=== PATIENT | female | born 1975 | race Caucasian/White ===

== ENCOUNTER → 2017-01-18 | Outpatient (CLI) | payer OTHER ==
[~2017-01-18] VITALS: Ht 167.6 cm; Wt 102.8 kg
[~2017-01-18] MED LIST: ANTIVERT25 MG PO; CBD OIL; CLARITIN10 MG PO; CYMBALTA30 MG PO; FLUOXETINE HCL40 MG PO; NUVIGIL150 MG PO; VITAMIN D 5050000 I1 PO
--- NOTE | ~2017-01-18 | HPC ---
[facility] [place] [address] PAIN MANAGEMENT CONSULTATION Name: CHARLES ANDERSON [facility] [id number] Admission: 01/18/17 Attend Phys: Rishi Rico DO Discharge: Date of : 75 Report #: [id number] THIS REPORT FOR: //name// CC: Rishi Torres DATE OF SERVICE: 01/18/2017 REFERRING PHYSICIAN: Wei Whaley M.D. CHIEF COMPLAINT: Low back pain, right lower extremity pain and paresthesias. HISTORY OF PRESENT ILLNESS: As you know, the patient is a 41-year-old morbidly obese female referred to our service for lumbar radicular symptoms. She has undergone epidural injections under fluoroscopic guidance. The most recent June 2016 with a greater than 50% improvement in overall pain. She returns today in followup visit with a slow and progressive return of symptoms, now placing her pain score at 7/10. States her pain is aching, dull and burning, exacerbated with activities, improves with epidural injections, rest and relaxation. She has returned today in followup visit requesting this epidural injection in hopes of building on success of previous intervention. ALLERGIES: No known drug allergies. CURRENT MEDICATIONS: None. SOCIAL HISTORY: The patient denies tobacco, alcohol, IV or illicit drug use. She is unaccompanied today. IMAGING: No new imaging available. PHYSICAL EXAMINATION: VITAL SIGNS: Blood pressure 125/81, pulse is 104, respiratory rate 16, unlabored, the patient 99% on room air, height 5 feet 6 inches tall, weight 226.6 pounds, BMI calculated 36.6. GENERAL: Well developed, well nourished, well hydrated, morbidly obese 41-year-old female appearing her stated age, placing current pain score at 7/10. HEENT: Normocephalic, atraumatic. Pupils equal, round, reactive to light. Extraocular muscles are intact. Sclerae nonicteric, without injection. EXTREMITIES: Show no clubbing, no cyanosis, no edema. MUSCULOSKELETAL: Lower extremity strength symmetrical 5/5, intact to light touch from L1 through S2 dermatomes. Seated straight leg raising negative. Supine straight leg raising positive on the right. Fabere's test negative. Modified Gaenslen's positive for axial low back pain. Ankle clonus negative. Babinski is negative. [address] [address] PAIN MANAGEMENT CONSULTATION Name: CHARLES ANDERSON Room #: REG CLI [facility]#: [id number] Admission: 01/18/17 Attend Phys: Rishi Rico DO Discharge: Date of : 75 Report #: [id number] ASSESSMENT: 1. Symptomatic lumbar radiculopathy. 2. Displacement of lumbar intervertebral disk with radiculopathy. 3. Lumbosacral spondylosis with radiculopathy. 4. Chronic intractable pain. PLAN: 1. The patient has returned today in followup visit requesting to undergo epidural injection under fluoroscopic guidance. She has received 50% improvement in overall pain with previous injection in June 2016. She returns today requesting this epidural injection in hopes of improving pain further. The patient was advised a third green party payer restrictions require that authorization be obtained before we could undergo the next in the series of epidural injections. This authorization will take somewhere between 4-7 working days, we will begin the process immediately, contact the patient once this has been completed. 2. No medication changes were made at today's visit. The patient to continue current medical therapy as previously prescribed. 3. The patient to return to our clinic once we have achieved precertification to undergo the next in a series of epidural injections to build on success of the previous intervention. cc: Wei Whaley M.D. By: [id number] Rishi Rico DO /cristel
[2017-01-18 10:44] VITALS: BP 125/81
== END ==
LOC: PAIN 06:50
DX: M47.27 Other spondylosis with radiculopathy, lumbosacral region (principal); M51.16 Intervertebral disc disorders with radiculopathy, lumbar region; F10.21 Alcohol dependence, in remission; Z88.8 Allergy status to other drugs, medicaments and biological substances; Z88.3 Allergy status to other anti-infective agents

== ENCOUNTER → 2017-02-02 | Outpatient (CLI) | payer OTHER ==
[~2017-02-02] VITALS: Ht 167.6 cm; Wt 102.7 kg
--- NOTE | ~2017-02-02 | HPC ---
[facility] [place] [address] PAIN MANAGEMENT CONSULTATION Name: CHARLES ANDERSON Room #: REG [facility].#: [id number] Admission: 02/02/17 Attend Phys: Rishi Rico DO Discharge: Date of : 75 Report #: [id number] THIS REPORT FOR: //name// CC: Rishi Torres MD DATE OF SERVICE: 02/02/2017 REFERRING PHYSICIAN: Mario Torres MD. CHIEF COMPLAINT: Low back pain, right lower extremity pain and paresthesias. HISTORY OF PRESENT ILLNESS: As you know, the patient is a 42-year-old female, who returns today in followup visit having received precertification to undergo the next in the series of epidural injections under fluoroscopic guidance. She returns today with pain level of 6/10. States her pain is aching, dull, and burning in sensation, exacerbated with sitting, standing, lying down, improves with repositioning and epidural injections. She reports good efficacy with the previous epidural injection performed on 06/09/2016 with 50% improvement in symptoms overall. She returns today having received precertification to undergo the next in the series in hopes of building on success of previous intervention. ALLERGIES: No known drug allergies. CURRENT MEDICATIONS: None. SOCIAL HISTORY: The patient denies tobacco, alcohol, IV or illicit drug use. She is unaccompanied today. IMAGING: No new imaging available. PHYSICAL EXAMINATION: VITAL SIGNS: Blood pressure 131/96, pulse 91, respiratory rate 20, unlabored. The patient is 99% on room air. Height 5 feet 6 inches tall, weight 226.4 pounds, BMI calculated 36.6. GENERAL: Well-developed, well-nourished, and well-hydrated. A 42-year-old female, appears her stated age, placing current pain score at 6/10. HEENT: Normocephalic and atraumatic. Pupils are equal, round, and reactive to light. EXTREMITIES: Show no clubbing, no cyanosis, no edema. MUSCULOSKELETAL: Seated straight leg raising negative. Supine straight leg raising positive. Fabere's test negative. Modified Gaenslen's is positive for axial low back pain. Ankle clonus negative. Gait is slightly antalgic, favoring right lower extremity over left. [address] [address] PAIN MANAGEMENT CONSULTATION Name: CHARLES ANDERSON Room #: REG [facility] Archana#: [id number] Admission: 02/02/17 Attend Phys: Rishi Rico DO Discharge: Date of : 75 Report #: [id number] ASSESSMENT: 1. Symptomatic lumbar radiculopathy. 2. Displacement of lumbar intervertebral disk with radiculopathy. 3. Lumbosacral spondylosis with radiculopathy. 4. Chronic intractable pain. PLAN: 1. The patient returns today in followup visit having received precertification to undergo the next in the series of epidural injections under fluoroscopic guidance. She has done very well with previous injections upwards of 50% improvement in overall pain. She returns today requesting next in the series. She has received precertification to undergo the procedure today. I advised the risks and benefits of the procedure, states she understood and wished to proceed. 2. No medication changes were made at today's visit. The patient is to continue current medical therapy as previously prescribed. 3. The patient is to return to our clinic on an as needed basis for the next in the series of epidural injections. PROCEDURE NOTE: DESCRIPTION OF PROCEDURE: Lumbar epidural steroid injection under fluoroscopic guidance. This is the third procedure of the first series that the patient is undergoing. After obtaining written consent, the patient was taken back to the fluoroscopy suite, placed in a prone position with pillow under the abdomen to decrease lumbar lordosis. The skin overlying the lumbosacral area was then prepped and draped in aseptic fashion. The lumbar vertebral interspace was then identified by AP fluoroscopy. The skin and subcutaneous tissue overlying the target site of injection was anesthetized with 3 mL 1% lidocaine. A 20-guage 4-1/2 inch Tuohy needle was then advanced under fluoroscopic guidance towards the epidural space using a right paramedian approach. The epidural space was identified using loss of resistance to air technique. After negative aspiration for heme or cerebrospinal fluid, a total of 1 mL of Omnipaque was injected. A lumbar epidurogram was confirmed using both AP and lateral fluoroscopy. After negative aspiration for heme or cerebrospinal fluid, 5 mL of solution containing 2 mL 40 mg per mL 80 mg total triamcinolone and 3 mL of lidocaine 1% was injected in increments. Contrast spread was noted posterior epidural space. The needle was then retracted approximately half way and needle tract flushed with 1 mL of 1% lidocaine. Needle was then removed. There were no apparent sensory or motor deficits in the lower extremity following the procedure. A sterile bandage was placed over the injection site. [facility] [address] [place] [address] PAIN MANAGEMENT CONSULTATION Name: CHARLES ANDERSON Room #: REG CL [facility]#: [id number] Admission: 02/02/17 Attend Phys: Rishi Rico DO Discharge: Date of : 75 Report #: [id number] The heart rate, pulse, oximetry and blood pressure were continuously monitored after the procedure. There were no apparent complications. The patient tolerated the procedure well and was carefully escorted to the recovery room in stable condition. There were no apparent complications. After meeting discharge criteria, the patient was then discharged home. <ELECTRONICALLY SIGNED> By: Rishi Rico DO 02/03/17 [id number] Rishi Rico DO /nt
[2017-02-02 09:50] VITALS: BP 131/96
== END | disposition home or self-care (01) ==
LOC: PAIN 02-01 13:06
DX: M51.16 Intervertebral disc disorders with radiculopathy, lumbar region (principal); M47.27 Other spondylosis with radiculopathy, lumbosacral region; G89.29 Other chronic pain

== ENCOUNTER → 2017-02-23 | Outpatient (CLI) | payer OTHER ==
--- NOTE | ~2017-02-23 | S ---
[facility] [address] [place] [address] SURGICAL PATH RPT PROCEDURE Name: CHARLES DOA [facility] [id number] Admission: 02/23/17 Date of : 75 Discharge: Report #: [id number] Path Case #: [id number] PATHOLOGY REPORT COLLECTION DATE: 02/23/2017 RECEIVED DATE: 02/23/2017 SUBMITTING PHYS: Dr. Dashawn Womack OTHER PHYS: Dr. Wayne Duron SPECIMEN(S) RECEIVED: A.Left breast nodule 3:00, 3cm FN * * * * * * * * * * * * FINAL DIAGNOSIS: Breast, left breast nodule 3:00, 3 cm from nipple, ultrasound-guided needle core biopsy: - Fat necrosis and moderate chronic inflammation associated with dense stromal fibrosis (please see comment). - Background breast tissue showing non-proliferative fibrocystic changes. - Negative for hyperplasia, atypia, or malignancy. COMMENT: AE1/AE3 immunohistochemical stain is performed on block A2: non-reactive within the infiltrative cells consistent with the diagnosis. Co-review: Dr. Demetria Pollard (IUV:mgr; d/t: 02/25/2017) PATHOLOGIST: Candis Ying M.D. REPORT ELECTRONICALLY SIGNED BY: Candis Ying M.D. DATE/TIME: 02/25/2017 15:23 * * * * * * * * * * * * GROSS PATHOLOGY: Received in formalin labeled "Charles Dao, left 3:00 3 cm," are multiple needle cores of yellow-machuca fibrofatty tissue measuring 2.4 x 1.2 x 0.2 cm in aggregate dimensions. The tissue is submitted in its entirety in cassette A1 and A2. The cold ischemic time is 5 minutes. The total formalin fixation time is 31 hours and 20 minutes. (CAA; 02/24/2017) CLINICAL HISTORY: Nodule [facility] [address] [facility] [place] [address] SURGICAL PATH RPT PROCEDURE Name: CHARLES DAO Room #: REG [facility].#: [id number] Admission: 02/23/17 Date of : 75 Discharge: Report #: [id number] Path Case #: [id number] INITIAL CPT CODE(S): A; 51888, 91160 Professional services performed by [facility] [address], [place] [address] Technical services performed by [facility] at [address] [place] [address], [facility] [address] [address]. [facility] [place] [address] PHONE: [phone] DIRECTOR: Juan Kaplan M.D. * * * END OF REPORT * * *
== END | disposition home or self-care (01) ==
LOC: ULTRA 01:47
DX: N60.32 Fibrosclerosis of left breast (principal)

== ENCOUNTER → 2017-06-15 | Outpatient (CLI) | payer OTHER ==
[~2017-06-15] VITALS: Ht 167.6 cm; Wt 101.9 kg
[~2017-06-15] MED LIST changes: +REXULTI1 MG PO; +XYZAL5 MG PO
--- NOTE | ~2017-06-15 | HPC ---
[facility] [place] [address] PAIN MANAGEMENT CONSULTATION Name: MONICACHARLES MELCHORN Room #: REG [facility]#: [id number] Admission: 06/15/17 Attend Phys: Rishi Rico DO Discharge: Date of : 75 Report #: [id number] THIS REPORT FOR: //name// CC: Rishi Torres DATE OF SERVICE: 06/15/2017 DATE OF SERVICE: 06/15/2017 CHIEF COMPLAINT: Low back pain, right lower extremity pain and paresthesias. HISTORY OF PRESENT ILLNESS: As you know, the patient is a 42-year-old female, who returns today in followup visit requesting to undergo the next in a series of epidural injections under fluoroscopic guidance. The patient reports near 100% improvement in overall pain for the past 4 months. She states she has had a slow and progressive return of symptoms with pain now level at 3/10. She returns today requesting to undergo the next in a series of epidural injections in hopes of improving pain and continued analgesic benefit. ALLERGIES: No known drug allergies. CURRENT MEDICATIONS: Xyzal 5 mg once a day, Rexulti 1 mg per day. SOCIAL HISTORY: The patient denies tobacco, alcohol, IV or illicit drug use. She is unaccompanied today. IMAGING: No new imaging available. PHYSICAL EXAMINATION: VITAL SIGNS: Blood pressure 121/83, pulse is 90, respiratory rate 16, unlabored. The patient is 97% on room air, height 5 feet 6 inches tall, weight 224.6 pounds, BMI calculated 36.3. GENERAL: Well developed, well nourished, well hydrated, morbidly obese 42-year-old female appearing her stated age. She is placing current pain score at approximately 3/10. HEENT: Normocephalic, atraumatic. Pupils equal, round, reactive to light. EXTREMITIES: Show no clubbing, no cyanosis, no edema. MUSCULOSKELETAL: Lower extremity strength 5/5 in all muscle bulk and tone equal and symmetrical. Seated straight leg raising negative. Supine straight leg raising mildly positive on the right with distribution of the L5 dermatome. Bernardo test negative. Modified Gaenslen's positive for axial low back pain. ASSESSMENT: 1. Symptomatic lumbar radiculopathy. [address] [address] PAIN MANAGEMENT CONSULTATION Name: CHARLES ANDERSON Room #: REG [facility]#: [id number] Admission: 06/15/17 Attend Phys: Rishi Rico DO Discharge: Date of : 75 Report #: [id number] 2. Displacement of lumbar intervertebral disk with radiculopathy. 3. Lumbosacral spondylosis with radiculopathy. 4. Chronic intractable pain. PLAN: 1. The patient returns today in followup visit requesting to undergo the next in a series of epidural injections under fluoroscopic guidance. The patient has had a slow and progressive return of symptoms, now placing pain score 3/10. She received near 100% improvement in overall pain with the previous epidural injection. She is hopeful to see similar improvement once we have received precertification to undergo the next in a series of epidural injections. I did advise the patient. This will take somewhere between 4-7 working days, begin the process immediately, contact the patient once this is available. 2. No medication change were made at today's visit. The patient will continue current medical therapy as previously prescribed. 3. We will see the patient back in followup visit once we have received precertification to undergo a lumbar epidural injection under fluoroscopic guidance. By: [id number] Rishi Rico DO /nt
[2017-06-15 10:37] VITALS: BP 121/83
== END | disposition home or self-care (01) ==
LOC: PAIN 07:04
DX: M51.16 Intervertebral disc disorders with radiculopathy, lumbar region (principal); M47.27 Other spondylosis with radiculopathy, lumbosacral region; G89.29 Other chronic pain; Z98.890 Other specified postprocedural states; Z91.040 Latex allergy status; Z88.3 Allergy status to other anti-infective agents

== ENCOUNTER → 2019-10-30 | Outpatient (CLI) | payer OTHER ==
[~2019-10-30] VITALS: Ht 167.6 cm; Wt 102.0 kg
[~2019-10-30] MED LIST changes: +BRINTELLIX20 MG PO; +BUSPIRONE HCL10 MG PO; +NUVIGIL50 MG PO; +SINGULAIR 10 MG10 M1 PO
--- NOTE | ~2019-10-30 | HPC ---
[facility] [place] [address] PAIN MANAGEMENT CONSULTATION Name: CHARLES ANDERSON Room #: REG [facility].#: [id number] Admission: 10/30/19 Attend Phys: Rishi Rico DO Discharge: Date of : 75 Report #: [id number] THIS REPORT FOR: cc: Mario Torres MD, Neal A. MD Johnson, James E. DO ~ CC: Dr. Arguelles ____ Rishi Torres MD DATE OF SERVICE: 10/30/2019 REFERRING PHYSICIAN: Dr. Arguelles ____ PRIMARY CARE PHYSICIAN: Mario Torres MD CHIEF COMPLAINT: Low back pain, right lower extremity pain with paresthesias. HISTORY OF PRESENT ILLNESS: As you know, the patient is a pleasant 44-year-old female who has returned today in followup visit with recurrence of low back pain and right lower extremity pain with paresthesias. She is placing pain at around 6-9/10. She describes the pain as burning and constant, exacerbated with standing and improves with lying down and rest. She has undergone epidural injections in the past with good efficacy. The most recent epidural injection provided 100% improvement in overall pain lasting for months. She returns today in followup visit to begin the authorization process to undergo an epidural injection before her trip to [facility] scheduled for 11/26/2019. The patient denies new injury, trauma or any changes in medical history since our last visit. Pain she rates today at a level of 6-9/10 involving low back, radiating down the right leg. ALLERGIES: No known drug allergies. CURRENT MEDICATIONS: Xyzal 5 mg once a day, Trintellix 20 mg once a day, Nuvigil 50 mg 4 tablets per day, montelukast sodium 10 mg per day, Rexulti 2 mg once a day, CBD oil. SOCIAL HISTORY: The patient denies tobacco, alcohol, IV or illicit drug use. She is unaccompanied today. IMAGING: No new imaging available. PHYSICAL EXAMINATION: VITAL SIGNS: Blood pressure 139/81, pulse 81, respiratory rate 16 and unlabored, the patient is 96% on room air. Height 5 feet 6 inches tall, weight [facility] [address] [place] [address] PAIN MANAGEMENT CONSULTATION Name: CHARLES ANDERSON Room #: REG [facility]#: [id number] Admission: 10/30/19 Attend Phys: Rishi Rico DO Discharge: Date of : 75 Report #: [id number] 224.8 pounds, BMI calculated 36.3. GENERAL: Well-developed, well-nourished, well-hydrated exogenously obese 44-year-old female appearing stated age, pain is rated today 6-9/10. HEENT: Normocephalic and atraumatic. Pupils are equal, round, and reactive to light. Extraocular muscles are intact. Sclerae nonicteric without injection. EXTREMITIES: Show no clubbing, no cyanosis, no edema. MUSCULOSKELETAL: Lower extremity strength remains symmetrical again today 5. Muscle bulk and tone is symmetrical in comparing left lower extremity to right. Lumbar provocation testing is met with slight increase in overall pain, this is noted mainly with forward flexion and rotation. Modified Gaenslen's positive for axial low back pain. Seated straight leg raising negative. Supine straight leg raising remains positive on the right at about 70 degrees. ASSESSMENT: 1. Symptomatic lumbar radiculopathy. 2. Displacement of lumbar intervertebral disk with radiculopathy. 3. Lumbosacral spondylosis with radiculopathy. 4. Chronic intractable pain. PLAN: 1. The patient returns today in followup visit to begin the process of authorization to undergo a lumbar epidural injection under fluoroscopic guidance. The patient was advised that authorization processes are no longer requested by her insurance. We would recommend though that if she is planning to undergo an epidural injection to assist in pain during her trip that we placed the injection closer to the trip date, which is scheduled for 02/26/2020. The patient and I discussed the possibility of undergoing the epidural injection today and she will see improvement, but if she wishes to place the injection closer to the date, she will see a more significant effect with the steroid while she is on her trip. She is amenable to set the appointment date for the 19 of November. 2. The patient was scheduled for the 19 of November to undergo a lumbar epidural injection under fluoroscopic guidance. We did not make any changes in the patient's medication management today. She states she is doing well overall despite the elevated pain level of 6-9/10 today. The patient states she will continue her normal work and activities and plan to undergo the injection on the 19 of November. By: [id number] Rishi Rico DO /nt
[2019-10-30 08:49] VITALS: BP 139/81
--- NOTE | 2019-10-30 09:06 | NUR ---
Pain Clinic Assessment: 1. History of Osteoarthritis: BACK History of Rheumatoid Arthritis: 2. Height: 5 ft. 6 in. 167.6 cm. Weight: 224.8 lb. oz. 101.969 kg. Patient's BMI: 36.3 3. Vital Signs: BP: 139/81 Pulse: 81 Resp: 16 Temp: 02 Sat: 96 ECG Mon: 4. Pain Intensity: 6-9 5. Fall Risk: Dizziness: N Needs help standing or walking: N Fallen in the last 3 months: N Fall risk comments: 6. Patient on Blood Thinner: None 7. History of Hypertension: N 8. Opioid Therapy greater than 6 weeks: N Opiate Contract Signed: 9. Risk Assessment Tool Provided: 6-MODERATE 10. Functional Assessment Tool: 45/ 11. Recreational Drug Use: Never Drug Type: Tobacco Use: Never Smoker Tobacco Type: Amount or Packs/day: How Many Years: Alcohol Use: Yes Frequency: Quant:
== END ==
LOC: PAIN 07:35
DX: M51.16 Intervertebral disc disorders with radiculopathy, lumbar region (principal); M47.26 Other spondylosis with radiculopathy, lumbar region; M79.604 Pain in right leg; G89.29 Other chronic pain; Z79.899 Other long term (current) drug therapy

== ENCOUNTER → 2019-11-20 | Outpatient (CLI) | payer OTHER ==
[~2019-11-20] VITALS: Ht 167.6 cm; Wt 100.8 kg
[2019-11-20 11:16] VITALS: BP 133/97
--- NOTE | 2019-11-20 11:25 | NUR ---
Pain Clinic Assessment: 1. History of Osteoarthritis: BACK History of Rheumatoid Arthritis: 2. Height: 5 ft. 6 in. 167.6 cm. Weight: 222.2 lb. oz. 100.789 kg. Patient's BMI: 35.9 3. Vital Signs: BP: 133/97 Pulse: 85 Resp: 16 Temp: 02 Sat: 97 ECG Mon: 4. Pain Intensity: 8-9 WITH ACTIVITY 5. Fall Risk: Dizziness: N Needs help standing or walking: N Fallen in the last 3 months: N Fall risk comments: 6. Patient on Blood Thinner: None 7. History of Hypertension: N 8. Opioid Therapy greater than 6 weeks: N Opiate Contract Signed: 9. Risk Assessment Tool Provided: 6-MODERATE 10. Functional Assessment Tool: 11. Recreational Drug Use: Never Drug Type: Tobacco Use: Never Smoker Tobacco Type: Amount or Packs/day: How Many Years: Alcohol Use: Yes Frequency: Quant:
--- NOTE | 2019-11-20 15:47 | HPC ---
[facility] [place] [address] PAIN MANAGEMENT CONSULTATION Name: CHARLES ANDERSON Room #: [facility]#: [id number] Admission: 11/20/19 Attend Phys: Rishi iRco DO Discharge: Date of : 75 Report #: [id number] THIS REPORT FOR: cc: Mario Torres MD, Neal A. MD Johnson, James E. DO ~ DATE OF SERVICE: 11/20/2019 REFERRING PHYSICIAN: Dr. Mario Torres. CHIEF COMPLAINT: Low back pain, right lower extremity pain with paresthesias and intermittent left lower extremity pain with paresthesias. HISTORY OF PRESENT ILLNESS: As you know, the patient is a very pleasant 44-year-old female returning in followup visit with recurrent low back pain and mainly right lower extremity pain with paresthesias. She is placing pain anywhere from 8-9/10 depending on activity. She returns stating that the previous epidural injection provided at our last visit, gave greater than 60% improvement in overall pain. She indicates pain today as burning and constant. She describes symptoms as similar to previous evaluations. She returns today in followup visit to undergo lumbar epidural injection under fluoroscopic guidance to address lumbar radicular symptoms that have reoccurred. She denies injury or trauma that may have led to symptom reoccurrence. ALLERGIES: No known drug allergies. CURRENT MEDICATIONS: Xyzal 5 mg once a day, Trintellix 20 mg once a day, Nuvigil 50 mg 4 tabs per day, montelukast sodium 10 mg once a day, Rexulti 1 mg once a day, CBD oil p.r.n. SOCIAL HISTORY: The patient denies tobacco, alcohol, IV or illicit drug use. She is unaccompanied today. IMAGING: No new imaging available. PHYSICAL EXAMINATION: VITAL SIGNS: Blood pressure 133/97, pulse 85, respiratory rate 16 and unlabored. The patient is 97% on room air. Height 5 feet 6 inches tall, weight 222.2 pounds, BMI calculated 35.9. GENERAL: Well-developed, well-nourished, well-hydrated exogenously obese 44-year-old female appearing stated age, pain is rated today 8-9/10. HEENT: Head is normocephalic, atraumatic. Pupils are equal, round and reactive to light. NEUROLOGIC: Speech fluent. The patient deemed a good historian. [address] [address] PAIN MANAGEMENT CONSULTATION Name: CHARLES ANDERSON Room #: [facility]#: [id number] Admission: 11/20/19 Attend Phys: Rishi Rico DO Discharge: Date of : 75 Report #: [id number] EXTREMITIES: Show no clubbing, no cyanosis and no edema. MUSCULOSKELETAL: Lower extremity strength equal and symmetrical 5/5. Muscle bulk and tone remains symmetrical in comparing left lower extremity to right. Seated straight leg raising is negative. Supine straight leg raising positive on the right. Bernardo's test negative. Gait is mildly antalgic favoring right lower extremity over left. ASSESSMENT: 1. Symptomatic lumbar radiculopathy. 2. Displacement of lumbar intervertebral disk with radiculopathy. 3. Lumbosacral spondylosis with radiculopathy. 4. Chronic intractable pain. PLAN: 1. The patient returns today in followup visit requesting to undergo lumbar epidural injection under fluoroscopic guidance. She reports good efficacy with previous epidural injection, returning today to undergo next in the series. She has been advised risks and benefits of the procedure, states understood and wished to proceed. 2. The patient unfortunately has had her trip to [facility] canceled due to the COVID-19 virus. She is somewhat upset in regards to the trip being canceled, but is hopeful that she can reschedule this in the future. 3. We will see the patient back in followup visit on an as needed basis for possible next in the series of epidural injections. We are hopeful the patient will see good and prolonged benefit with today's procedure. PROCEDURE NOTE DESCRIPTION OF PROCEDURE: L4-L5 interlaminar epidural steroid injection under fluoroscopic guidance. After obtaining written consent, the patient was taken back to fluoroscopy suite, placed in prone position with pillow under abdomen to decrease lumbar lordosis. Skin overlying lumbosacral area then prepped and draped in aseptic fashion. The lumbar intervertebral spaces were identified by AP fluoroscopy. Skin and subcutaneous tissue overlying the target site of injection was prepped with Betadine due to a chlorhexidine allergy. A 27-gauge 1-1/4 inch needle was then used to anesthetize skin and subcutaneous tissue with 2 mL of 1% lidocaine. A 20-gauge 4-1/2 inch Tuohy needle advanced under fluoroscopic guidance towards the epidural space using a paramedian approach. Epidural space identified using loss of resistance to air technique. After negative aspiration for heme or cerebrospinal fluid, 1 mL of Omnipaque injected. Lumbar epidurogram was confirmed using both AP and lateral fluoroscopy. After negative aspiration for heme or cerebrospinal fluid, 5 mL of a solution containing 2 mL 40 mg per mL, 80 mg total triamcinolone along with 3 mL of lidocaine 1% injected slowly. Needle [address] [address] PAIN MANAGEMENT CONSULTATION Name: CHARLES ANDERSON Room #: [facility]#: [id number] Admission: 11/20/19 Attend Phys: Rishi Rico DO Discharge: Date of : 75 Report #: [id number] then retracted approximately half way, flushed with 1 mL of 1% lidocaine and then removed. Sterile bandage placed over injection site. No new motor deficits present in the lower extremities following procedure. The patient tolerated procedure well, carefully escorted to recovery room in stable condition. No apparent complications. After meeting discharge criteria, the patient discharged home. <ELECTRONICALLY SIGNED> By: Rishi Rico DO 11/20/19 [id number] Rishi Rico DO /nt
== END | disposition home or self-care (01) ==
LOC: PAIN 06:50
DX: M51.16 Intervertebral disc disorders with radiculopathy, lumbar region (principal); M47.27 Other spondylosis with radiculopathy, lumbosacral region; G89.29 Other chronic pain; Z98.890 Other specified postprocedural states; Z79.899 Other long term (current) drug therapy; Z91.040 Latex allergy status; Z88.8 Allergy status to other drugs, medicaments and biological substances